=== PATIENT | female | born 1955 | race Caucasian/White ===

== ENCOUNTER 2023-07-02 09:34 | Emergency (ER) | payer OTHER, SELFPAY ==
--- NOTE | 2023-07-02 09:42 | ED.GENMED ---
History of Present Illness
<Vinicio Bueno PA-C - Last Filed: 07/02/23 12:57>
General
Chief Complaint: Crisis Evaluation
Source: records and ambulance crew
Time Seen by Provider: 07/02/23 09:36
History of Present Illness
History of Present Illness:
68-year-old female with past medical history of schizoaffective disorder presenting to the emergency department via EMS from home for reported erratic behavior. I am unable to obtain any further history from the patient's secondary to her not
cooperating and continuously yelling at staff. Based off record review patient was seen in this emergency department in October 2022 for an exacerbation of psychosis and was dispositioned to [facility] for further evaluation and treatment.
Past History
<Vinicio Bueno PA-C - Last Filed: 07/02/23 12:57>
Past History
ED Past Medical History: Psychiatric (Psychiatric illness) and Other (Did not obtain.)
ED Past Surgical History: Other (Cannot obtain)
Social History
Tobacco: Non-smoker
Alcohol: None
Drug: None
Personal:
Living: with family
Employment: Not employed
Family History
Family History: Other (Did not obtain)
Review of Systems
<Vinicio Bueno PA-C - Last Filed: 07/02/23 12:57>
Review of Systems
All Other Systems: ROS reviewed and negative except as documented in HPI and ROS
Phy Exam
<Vinicio Bueno PA-C - Last Filed: 07/02/23 12:57>
Physical Exam
Physical Exam:
GENERAL: Alert , continuously yelling, difficult to redirect, not answering questions and cursing at staff
EYE: conjunctiva clear
Head: Normocephalic atraumatic
NECK: Supple,
ENT: mmm.
LUNGS: no acute respiratory distress
NEUROLOGICAL: Alert but unable to assess orientation
SKIN: Warm and dry, skin intact.
MUSCULOSKELETAL: well perfused.
PSYCH: Very erratic, yelling, unkempt
Scores
<Vinicio Bueno PA-C - Last Filed: 07/02/23 12:57>
Heart Failure Risk
Heart Failure Risk Score: Not Applicable
Heart Score for Chest Pain Patients
STEMI patient?: Not applicable
Withdrawal Assessment of Alcohol
Withdrawal Assessment Completed?: Not applicable
Course
<Vinicio Bueno PA-C - Last Filed: 07/02/23 12:57>
Orders/Labs/Results
Orders:
Orders
07/02/23 09:40
observation [ED Special Safety Observation] ONCE
Observation level: One to One
07/02/23 09:41
Drug Screen, Urine [Urine Drug Abuse Screen] Urgent
Date Specimen was Collected: 07/02/23
Time Specimen was Collected: 11:13
Lorazepam [Ativan] 2 mg .ROUTE .STK-MED ONE
Lorazepam [Ativan] 2 mg IM NOW STA
07/02/23 09:42
Crisis Consult Urgent
Reason for Consult: 302
07/02/23 09:57
Haloperidol Lactate [Haldol] 5 mg .ROUTE .STK-MED ONE
Haloperidol Lactate [Haldol] 5 mg IM NOW STA
07/02/23 10:18
Complete Blood Count/With Diff Urgent
Comprehensive Metabolic Panel Urgent
Folate Urgent
Comment: ADD ON
TSH Reflex To Free T4 Urgent
Comment: ADD ON
Vitamin B12 Urgent
Comment: ADD ON
07/02/23 11:10
ECG [Electrocardiogram (*1)] Routine
Reason for Study: QTc Monitoring
Lorazepam [Ativan] 1 mg PO Q4HPRN PRN
07/02/23 11:23
Urinalysis Reflex To Culture Routine
07/02/23 12:00
Add On- LAB Urgent
Tests Added?: Vitamin b-12, folate, TSH reflex to free T4
07/03/23 06:00
Folate IN AM
TSH Reflex To Free T4 IN AM
Vitamin B12 IN AM
07/03/23 08:00
Haloperidol [Haldol] 1 mg PO BID
Abnormal Lab Results
07/02/23
10:18
MPV 11.1 H fL
(7.4-10.4)
Chloride 108 H mmol/L
(98-107)
Glucose 107 H mg/dl
(70-99)
Folate > 20.0 H ng/ml
(2.76-20)
07/02/23 10:18
07/02/23 10:18
Vital Signs
Initial and Last Documented VS:
Initial Vital Signs
Pulse Resp Pulse Ox
98 18 97
07/02/23 09:44 07/02/23 09:44 07/02/23 09:44
Last Documented Vital Signs
Pulse Resp BP Pulse Ox
98 18 123/67 97
07/02/23 09:44 07/02/23 09:44 07/02/23 10:22 07/02/23 10:05
<Saurabh Washington, DO - Last Filed: 07/02/23 15:40>
Orders/Labs/Results
Orders:
Orders
07/02/23 09:40
observation [ED Special Safety Observation] ONCE
Observation level: One to One
07/02/23 09:41
Drug Screen, Urine [Urine Drug Abuse Screen] Urgent
Date Specimen was Collected: 07/02/23
Time Specimen was Collected: 11:13
Lorazepam [Ativan] 2 mg .ROUTE .STK-MED ONE
Lorazepam [Ativan] 2 mg IM NOW STA
07/02/23 09:42
Crisis Consult Urgent
Reason for Consult: 302
07/02/23 09:57
Haloperidol Lactate [Haldol] 5 mg .ROUTE .STK-MED ONE
Haloperidol Lactate [Haldol] 5 mg IM NOW STA
07/02/23 10:18
Complete Blood Count/With Diff Urgent
Comprehensive Metabolic Panel Urgent
Folate Urgent
Comment: ADD ON
TSH Reflex To Free T4 Urgent
Comment: ADD ON
Vitamin B12 Urgent
Comment: ADD ON
07/02/23 11:10
ECG [Electrocardiogram (*1)] Routine
Reason for Study: QTc Monitoring
Lorazepam [Ativan] 1 mg PO Q4HPRN PRN
07/02/23 11:23
Urinalysis Reflex To Culture Routine
07/02/23 12:00
Add On- LAB Urgent
Tests Added?: Vitamin b-12, folate, TSH reflex to free T4
07/03/23 06:00
Folate IN AM
TSH Reflex To Free T4 IN AM
Vitamin B12 IN AM
07/03/23 08:00
Haloperidol [Haldol] 1 mg PO BID
Abnormal Lab Results
07/02/23
10:18
MPV 11.1 H fL
(7.4-10.4)
Chloride 108 H mmol/L
(98-107)
Glucose 107 H mg/dl
(70-99)
Folate > 20.0 H ng/ml
(2.76-20)
07/02/23 10:18
07/02/23 10:18
Vital Signs
Initial and Last Documented VS:
Initial Vital Signs
Pulse Resp Pulse Ox
98 18 97
07/02/23 09:44 07/02/23 09:44 07/02/23 09:44
Last Documented Vital Signs
Pulse Resp BP Pulse Ox
98 18 123/67 97
07/02/23 09:44 07/02/23 09:44 07/02/23 10:22 07/02/23 10:05
<Vinicio Bueno PA-C - Last Filed: 07/02/23 12:57>
MDM/Problems Addressed
Differential Diagnosis Includes:
Suspect acute exacerbation of her schizoaffective disorder/psychosis. Minimally concern for infectious etiology
MDM/Problems Addressed:
68-year-old female presenting emergency department for evaluation of reported erratic behavior at home. She arrives to the emergency department yelling and not answering questions and cursing at staff when attempting to ask questions. Based off
record review it appears patient had a similar presentation 2022, did well with 2 mg of Ativan IM and ultimately was dispositioned to [facility]. Based off of patient's current agitation we will treat with 2 mg of Ativan. Crisis labs
ordered. Crisis and psychiatry consultation ordered.
<Vinicio Bueno PA-C - Last Filed: 07/02/23 12:57>
*Pulse Oximetry
Patient hypoxic: no
*Critical Care Note
Total Time (30-74mins, 75-104mins- exclusive of procedures): Not Applicable
Data Reviewed
Review of Other/Old Records Reveals: Records
Source: records and ambulance crew
<Vinicio Bueno PA-C - Last Filed: 07/02/23 12:57>
Comment
Comment:
10 AM: Patient attempting to elope, continues to be argumentative with staff and unable to redirect. Unfortunately the 2 mg of Ativan did not seem sufficient to control patient's agitation so an additional 5 mg of Haldol was ordered. Reassessment
following. I am attempting to chemically sedate the patient as opposed to physical restraints at this time.
Patient Management
Escalation/DeEscalation of care consider admission/obs:
Patient was seen by psychiatry. 302 upheld. Disposition to inpatient psychiatry unit. Following medications patient is much more calm and cooperative. Resting comfortably and in no acute distress at this time.
ED Attending Note
<Vinicio Bueno PA-C - Last Filed: 07/02/23 12:57>
-
Portions of this chart may have been created with voice recognition software.� Occasional wrong word or��sound alike� substitutions may have occurred due to the inherent limitations of voice recognition software.
<Saurabh Washington DO - Last Filed: 07/02/23 15:40>
ED Attending Note
Patient seen and examined by attending physician: Yes
I performed a history and physical exam of patient and discussed management with resident, I reviewed resident's note and agree with documented findings and plan of care.: Yes
ED Attending Note:
I have reviewed and agree with history and treatment plan by Taye Bueno. My exam reveals 68-year-old female with tangential thoughts, nonsensical speech, consistent with schizophrenia. No signs of trauma. Patient ambulates without difficulty.
Patient will be disposition to inpatient psychiatric facility.
Discharge Plan
Departure
Patient Disposition: Psych Facility
Date of Disposition: 07/02/23
Time of Disposition: 11:58
Discharge Problem:
Schizoaffective disorder
Prescriptions:
No Action
trazodone 50 mg Tablet
50 mg PO HS PRN (Reason: insomnia)
Patient Comments:
07/02/2023, last filled on 02/26/2023 for 30 tablets.
tiagabine 4 mg Tablet
4 mg PO HS
Referrals:
UNKNOWN,NO INTERVIEW [Family Provider] -
Interventions
Interventions:
*Risk Screen - Suicide Last Done: 07/02/23 09:45
*General Assessment Last Done: 07/02/23 09:54
*Neglect/Abuse Screening Last Done: 07/02/23 09:45
*ED COVID-19 Vaccine History Last Done: 07/02/23 09:46
ED-Psychological Assessment Last Done: 07/02/23 09:47
[2023-07-02] MEDS: ATIVAN 2 MG IM (09:48)
[2023-07-02] MEDS: HALDOL 5 MG IM (10:01)
[2023-07-02 10:22] VITALS: BP 123/67
[2023-07-02 10:23] LABS: % Basophils 0.7 % (0-2); % Eosinophils 1.7 % (0-6); % Immature Granulocytes 0.4 % (0-0.5); % Lymphocytes 27.3 % (20.5-51.1); % Monocytes 7.1 % (1.7-9.3); % Neutrophils 62.8 % (42.2-75.2); Absolute Eosinophils 0.1 10^3/uL (0-0.7); Absolute Lymphocytes 1.5 10^3/uL (1.2-3.4); Absolute Monocytes 0.4 10^3/uL (0.1-0.6); Absolute Neutrophils 3.4 10^3/uL (1.4-6.5); Hematocrit 40.3 % (37.0-47.0); Hemoglobin 13.8 g/dL (12.0-16.0); Mean Corp Hgb Conc. 34.2 g/dL (33.0-37.0); Mean Corpuscular Hgb 30.6 pg (27.0-31.0); Mean Corpuscular Volume 89.4 fL (81.0-99.0); Mean Platelet Volume 11.1 fL (7.4-10.4); Nucleated Red Blood Cells % 0 %; Platelet Count 271 10^3/uL (130-400); Red Blood Cell Count 4.51 10^6/uL (4.20-5.40); Red Cell Dist. Width 13.3 % (11.5-14.5); White Blood Cell Count 5.4 10^3/uL (4.8-10.8)
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
[2023-07-02 11:20] LABS: ALT (SGPT) 25 U/L (0-35); AST (SGOT) 34 U/L (14-36); Albumin 3.8 g/dl (3.5-5.0); Alkaline Phosphatase 120 U/L (38-126); Blood Urea Nitrogen 7 mg/dl (7-17); Calcium 9.7 mg/dl (8.4-10.2); Carbon Dioxide 23 mmol/L (22-30); Chloride 108 mmol/L (98-107); Glucose 107 mg/dl (70-99); Potassium 3.6 mmol/L (3.5-5.1); Sodium 138 mmol/L (135-145); Total Bilirubin 0.6 mg/dl (0.2-1.3); Total Protein 6.9 g/dl (6.3-8.2); eGFR > 60.00
[2023-07-02] MEDS: ATIVAN 1 MG PO (13:20)
[2023-07-02 13:25] LABS: TSH Reflex To Free T4 0.78 uIU/ml (0.47-4.68)
[2023-07-02 14:01] LABS: Folate > 20.0 ng/ml (2.76-20); Vitamin B12 248 pg/ml (239-931)
--- NOTE | 2023-07-02 14:26 | PHANOTE ---
07/02/2023, med rec tech, pt. obtunded at time of interview; attempted to call pt.'s son at [phone] but this is incorrect number and I called a stranger instead; attempted to call pt.'s daughter at [phone] but the number did not ring; pt.
has no [facility] records; used pt.'s recent pharmacy fill data to compile their home med. list.
== END 2023-07-02 19:57 ==
LOC: EMR 09:34
PROVIDERS: Physician Assistant Medical; EMERGENCY PHYSICIAN Emergency Medicine; OTHER PHYSICIAN Psychiatry & Neurology Psychiatry
DX: F25.9 Schizoaffective disorder, unspecified (principal)
CPT/HCPCS: 99285; 96372 ×2; 80053; 82607; 82746; 84443; 85025

== ENCOUNTER 2024-06-06 15:20 | Emergency (ER) | payer OTHER, SELFPAY ==
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
[2024-06-06] MEDS: HALDOL 3 MG IM (18:42)
[2024-06-06] MEDS: ATIVAN 2 MG IM (18:43)
[2024-06-06 19:41] VITALS: BP 135/69
== END 2024-06-06 20:37 ==
LOC: EMR 15:20
PROVIDERS: EMERGENCY PHYSICIAN Emergency Medicine
DX: F23 Brief psychotic disorder (principal); R45.1 Restlessness and agitation; Z91.148 Patient's other noncompliance with medication regimen for other reason
CPT/HCPCS: 99282

== ENCOUNTER 2024-08-15 10:12 | Emergency (ER) | payer OTHER, SELFPAY ==
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
[2024-08-15] MEDS: HALDOL 5 MG IM (10:24)
[2024-08-15] MEDS: NICODERM TRANSDERMAL 14 MG TRANSDERM (10:24)
[2024-08-15] MEDS: ATIVAN 2 MG IM (10:24)
[2024-08-15 10:27] VITALS: BP 190/101
[2024-08-15 10:47] LABS: % Basophils 0.5 % (0-2); % Eosinophils 0.7 % (0-6); % Immature Granulocytes 0.3 % (0-0.5); % Lymphocytes 22.4 % (20.5-51.1); % Monocytes 8.1 % (1.7-9.3); Absolute Eosinophils 0.1 10^3/uL (0-0.7); Absolute Lymphocytes 1.7 10^3/uL (1.2-3.4); Absolute Monocytes 0.6 10^3/uL (0.1-0.6); Absolute Neutrophils 5.2 10^3/uL (1.4-6.5); Hematocrit 40.9 % (37.0-47.0); Hemoglobin 14.4 g/dL (12.0-16.0); Mean Corp Hgb Conc. 35.2 g/dL (33.0-37.0); Mean Corpuscular Hgb 30.8 pg (27.0-31.0); Mean Corpuscular Volume 87.6 fL (81.0-99.0); Mean Platelet Volume 10.6 fL (7.4-10.4); Nucleated Red Blood Cells % 0 %; Platelet Count 259 10^3/uL (130-400); Red Blood Cell Count 4.67 10^6/uL (4.20-5.40); Red Cell Dist. Width 13.6 % (11.5-14.5); White Blood Cell Count 7.6 10^3/uL (4.8-10.8)
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
[2024-08-15 11:27] VITALS: BP 96/50
[2024-08-15 11:33] LABS: ALT (SGPT) 27 U/L (0-35); AST (SGOT) 28 U/L (14-36); Albumin 4.4 g/dl (3.5-5.0); Alkaline Phosphatase 110 U/L (38-126); Blood Urea Nitrogen 8 mg/dl (7-17); Calcium 9.8 mg/dl (8.4-10.2); Carbon Dioxide 22 mmol/L (22-30); Chloride 107 mmol/L (98-107); Glucose 105 mg/dl (70-99); Potassium 3.5 mmol/L (3.5-5.1); Sodium 143 mmol/L (135-145); Total Bilirubin 0.8 mg/dl (0.2-1.3); Total Protein 7.5 g/dl (6.3-8.2); eGFR > 60.00
[2024-08-15 12:34] VITALS: BP 127/66
[2024-08-15 17:30] VITALS: BP 148/84
[2024-08-15 20:00] VITALS: BP 128/73
== END 2024-08-15 21:14 ==
LOC: EMR 10:12
PROVIDERS: EMERGENCY PHYSICIAN Student in an Organized Health Care Education/Training Program
DX: F25.9 Schizoaffective disorder, unspecified (principal); Z91.148 Patient's other noncompliance with medication regimen for other reason
CPT/HCPCS: 99283; 96372; 80053; 85025